=== PATIENT | male | born 1975 | race Caucasian/White ===

== ENCOUNTER 2016-12-24 15:42 | Observation (INO) | payer OTHER ==
[~2016-12-24] VITALS: Ht 180.3 cm; Wt 102.1 kg
[2016-12-24] MEDS ORDERED: CLONAZEPAM1 M2 PO ×2 (16:53)
[2016-12-24] MEDS ORDERED: CLONIDINE HCL0.1 MG PO ×2 (16:54)
[2016-12-24] MEDS ORDERED: SERTRALINE HCL100 MG PO (16:55)
[2016-12-24] MEDS ORDERED: GABAPENTIN300 M2 PO (16:55)
[2016-12-24] MEDS ORDERED: ADDERALL XR 1515 MG PO (16:56)
[2016-12-24] MEDS ORDERED: FOLIC ACID1 M1 PO (16:56)
[2016-12-24 16:58] LABS: ABSOLUTE BASOPHIL COUNT 0 /CUMM (0.0-0.2); ABSOLUTE EOSINOPHIL COUNT 0.2 /CUMM (0.0-0.7); ABSOLUTE GRANULOCYTE CT 3.6 /CUMM (1.4-6.5); ABSOLUTE LYMPH COUNT 2.2 /CUMM (1.2-3.4); ABSOLUTE MONOCYTE COUNT 0.4 /CUMM (0.10-0.60); BASOPHIL % 0.5 % (0.0-2.0); EOSINOPHIL % 3.5 % (0-5); GRANULOCYTE % 55.7 % (42.2-75.2); HEMATOCRIT 47.4 % (42-52); MEAN CORPUSCULAR HGB 29.5 PG (27.0-31.0); MEAN CORPUSCULAR HGB CONC 33.2 G/DL (33.0-37.0); PLATELET COUNT 203 /CUMM (130-400); RBC DISTRIBUTION WIDTH 16.6 % (11.5-14.5); RED BLOOD CELL CT 5.33 /CUMM (4.70-6.10); WHITE BLOOD CELL COUNT 6.5 /CUMM (4.8-10.8)
--- NOTE | 2016-12-24 17:00 | ED PSYCHIATRIC COMPLAINT ---
History of Present Illness General Chief Complaint: ETOH/Drug Related Complaint Stated Complaint: ETOH DETOX? Source: patient Exam Limitations: clinical condition Vital Signs & Intake/Output Vital Signs & Intake/Output Vital Signs Date Time Temp Pulse Resp B/P Pulse O2 O2 Flow FiO2 Ox Delivery Rate 12/25 0614 98.4 94 18 158/74 / 0613 98.4 94 18 158/74 97 Room Air 03/ 0342 98.4 109 18 164/76 / 0341 98.4 109 20 164/76 97 Room Air /08 0200 98.7 84 18 144/80 03/08 0200 98.7 94 18 144/80 98 Room Air 03/08 0041 98.9 92 18 142/78 /08 0041 98.9 92 18 142/78 97 Room Air / 2235 98.9 94 18 141/75 03/ 2206 98.9 94 18 141/75 95 Room Air / 202 98.8 101 22 156/81 100 Room Air 12/25 2019 98.8 101 22 156/81 12/24 2018 98.8 102 20 156/81 03/07 1746 98.9 116 20 154/72 03/07 1736 98.9 116 16 154/72 96 Room Air / 1552 98.4 145 22 169/94 96 Room Air ED Intake and Output 12/25 0000 12/24 1200 Intake Total 2000 Output Total 550 Balance 1450 Intake, IV 2000 Output, Urine 550 Patient 225 lb Weight Allergies Coded Allergies: No Known Allergies (12/24/16) Reconcile Medications Clonazepam 1 MG TABLET 1 TAB PO BID ANXIETY (Reported) Clonazepam 1 MG TABLET 2 TAB PO QPM ANXIETY (Reported) Clonidine HCl 0.1 MG TABLET 1 TAB PO BID ANXIETY (Reported) Clonidine HCl 0.1 MG TABLET 2 TAB PO QPM ANXIETY (Reported) Dextroamphetamine/Amphetamine (Adderall XR 15 MG Capsule) 15 MG CAP.ER.24H 1 CAP PO PRN ADD (Reported) Folic Acid 1 MG TABLET 1 TAB PO DAILY SUPPLEMENT (Reported) Gabapentin 300 MG CAPSULE 1 CAP PO 4XDAILY UNKNOWN (Reported) Sertraline HCl 100 MG TABLET 3 TAB PO QAM MENTAL HEALTH (Reported) Triage Note: TRIAGE: PT TO ER "I STARTED GETTING SCARED THAT I WOULD HAVE ANOTHER SEIZURE BECAUSE I START SEEING [facility]. I THINK THEY CALL IT [facility]". 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 HAS BEEN WITHOUT SAME X COUPLE WEEKS. STATES HAS BEEN "SUBSTITUTING" WITH ATIVAN AND ALCOHOL. LAST DOSE OF ATIVAN WAS LAST NIGHT. LAST DRINK THIS MORNING. HAS BEEN DRINKING ALMOST DAILY X COUPLE WEEKS. HR 145 AT TRIAGE. EKG ORDERED. Triage Nurses Notes Reviewed? 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 Pt endorses previous hospitalizations and detoxes but never at . He is evasive about the last date of hospitalization. It sounds like it was fairly recent as his klonopin taper ended yesterday. Last seizure was one week ago. Pt also drinks EtOH but he states that he does not drink daily. He endorses heavy "social drinking." Last drink was this AM and consisted of 2 beers and 5-6 shots of liquor. He states he turns to EtOH when his Klonopin prescription runs out and he feels uneasy from withdrawl. He does not seem to think any of his withdrawl seizures are from EtOH but solely from Klonopin but based on history it is not entirely clear if that is the case. Denies any SI/HI currently. Denies any PMH of significant condition other than orthopedic procedures. Endorses anxiety. He denies any other drugs of abuse other than Benzos, EtOH and very rare use of medical grade cannabis. Endorses previous addictions and a baseline "addictive personality." He states that he lives in the [facility]. (REUBEN HOPKINS,[facility]) Past History Travel History Traveled to [place] past 21 day No Medical History Any Pertinent Medical History? none Neurological: NONE EENT: NONE Cardiovascular: NONE Respiratory: NONE Gastrointestinal: NONE Hepatic: NONE Renal: NONE Musculoskeletal: NONE Psychiatric: NONE Endocrine: NONE Blood Disorders: NONE Cancer(s): NONE CANAL TENDER/Reproductive: NONE Surgical History Surgical History: non-contributory Psychosocial History What is your primary language Brazilian Tobacco Use: Current Daily Use Daily Tobacco Use Amount/Type: => 5 Cigarettes daily ETOH Use: heavy use Illicit Drug Use: marijuana Family History Hx Contributory? No (REUBEN HOPKINS,СВЕТЛАНА) Review of Systems Review of Systems Constitutional: Denies: malaise. EENTM: Denies: visual changes. Respiratory: Reports: no symptoms. Cardiovascular: Reports: no symptoms. GI: Reports: no symptoms. Genitourinary: Reports: no symptoms. Musculoskeletal: Reports: no symptoms. Skin: Reports: no symptoms. Neurological/Psychological: Reports: anxiety, paresthesia, tonic-clonic seizures. (REUBEN HOPKINS,СВЕТЛАНА) Physical Exam Physical Exam General Appearance: alert, awake, anxious, mild distress, intoxicated, dissheveled, poor hygiene. Head: atraumatic, normal appearance Eyes: Bilateral: normal appearance, PERRL, EOMI. Ears, Nose, Throat: normal pharynx, normal ENT inspection Neck: normal inspection, supple Respiratory: lungs clear Cardiovascular: tachycardic Gastrointestinal: soft, non-tender Extremities: normal range of motion Neurological/Psychiatric: awake, anxious, wildlife enforcement major II-XII nml as tested, depressed affect, oriented x 3 Appearance/Memory/Insight: disheveled Behavoir/Eye Contact/Speech: avoids eye contact SAD PERSONS Done? patient not suicidal (REUBEN HOPKINS,СВЕТЛАНА) Progress Differential Diagnosis: drug intoxication, drug withdrawal Plan of Care: Orders Procedure Date/time Status Regular Diet 12/25 D Active Regular Diet 12/25 B Complete Discharge Patient 12/[address] in observation 12/24 2124 Active Patient Data 12/24 2124 Active CASE MANAGEMENT CONSULT 12/24 2124 Active Code Status 12/24 2124 Active LACTIC ACID 12/24 1906 Complete Intake & Output 12/24 1748 Active CIWA 12/24 1746 Active Telemetry/Roof Truss Machine Tender 12/24 1606 Active MAGNESIUM 12/24 1606 Complete LACTIC ACID 12/24 1606 Complete ETHANOL 12/24 1606 Complete COMPREHENSIVE METABOLIC PANEL 12/24 1606 Complete CBC WITHOUT DIFFERENTIAL 12/24 1606 Complete URINE DRUG SCREEN FOR ER ONLY 12/24 1557 Complete EKG 12/24 1557 Active Laboratory Tests 12/24/16 1910: Lactic Acid 2.2 H 12/24/16 1645: Anion Gap 18 H, Estimated GFR > 60, BUN/Creatinine Ratio 15.0, Glucose 117 H, Lactic Acid 2.5 H, Calcium 9.4, Magnesium 1.9, Total Bilirubin 0.5, AST 44, ALT 40, Alkaline Phosphatase 77, Total Protein 7.2, Albumin 4.3, Globulin 2.9, Albumin/Globulin Ratio 1.5, CBC w Diff NO MAN DIFF REQ, RBC 5.33, MCV 89.0, MCH 29.5, RDW 16.6 H, MPV 7.0 L, Gran % 55.7, Lymphocytes % 33.9, Monocytes % 6.4, Eosinophils % 3.5, Basophils % 0.5, Absolute Granulocytes 3.6, Absolute Lymphocytes 2.2, Absolute Monocytes 0.4, Absolute Eosinophils 0.2, Absolute Basophils 0, PUBS MCHC 33.2, Serum Alcohol 164.0 12/24/16 1604: Urine Opiates Screen 167.00, Methadone Screen < 40, Barbiturate Screen < 60, Ur Phencyclidine Scrn > 72.00 H, Amphetamines Screen < 100, U Benzodiazepines Scrn 293 H, Urine Cocaine Screen < 50, Urine Cannabis Screen 28.40 Pt's utox is positive for etoh, benzos, PCP. His admission vitals included tachycardia nad tachypnea and he had mild lactic acidosis. At this time pt is actively detoxing. Will admisnister fluids and do repeat lactic acidosis. (REUBEN HOPKINS,СВЕТЛАНА) Initial ED EKG: normal axis, NSR Rhythm Strip: sinus tachycardia Hand-Off Endorsed To: HANNAH LUNA MD. (СВЕТЛАНА ALEXIS MD) Initial ED EKG: SINUS TACHYCARDIA Rhythm Strip: sinus tachycardia Hand-Off Endorsed To: HANNAH LUNA MD. Endorsed Time: 1900 Pending: labs (REPEAT LACTIC, REEVALUATION) (JASON APODACA MD) Hand-Off Endorsed To: LARRY MAIER MD Endorsed Time: 07 Pending: consult (CASE MANAEGMENT) Comments: Patient requesting something to help with his anxiety. An order has been placed for clonidine and Vistaril. Patient states that clonidine does not help him. Patient advised at this point we will hold off on any benzodiazepines. Patient then asked for something to "knock me out." Patient advised that the Vistaril is sedating and that will help him sleep. I was called into the room to evaluate the patient for seizure-like activity. Patient was laying on his bed and having tonic-clonic activity. Patient was responding to commands during this tonic-clonic activity and was tracking me with his eyes during this episode. There was no postictal state associated with this. Unlikely that this was a seizure. (JEREMY HOPKINS,HANNAH Boo) Departure Departure Condition: Stable Referrals: UNKNOWN (PCP/Family) Departure Forms: Customer Survey General Discharge Information (REUBEN HOPKINS,СВЕТЛАНА) Departure Clinical Impression Primary Impression: Benzodiazepine withdrawal Resident Co-Sign Statement Statement: ED Attending supervision documentation- [X] I saw and evaluated the patient. I have also reviewed all the pertinent lab results and diagnostic results. I agree with the findings and the plan of care as documented in the Resident's documentation. [X] I have reviewed the ED Record and agree with the Resident's documentation. [] Additions or exceptions (if any) to the Resident's note and plan are summarized below: [] (CONSTANZA HOPKINS,JASON) Departure Disposition: HOME OR SELF CARE Additional Instructions: Please return so we can attempt to help you detox from benzos and alcohol. (JEREMY HOPKINS,HANNAH Boo) ED Attending Observation Initial Observation Note: I have seen and personally examined PAPITO JACOBSON on 12/24/16 at 2125. I agree with the current emergency department documentation. The disposition (admission or discharge) is uncertain at this time, he needs a period of observation for the following reason(s): [PT will remain in the emergency department overnight for CIWA scoreing. Patient is requesting detox. Patient has state insurance so will require prior authorization. Currently the patient is sleeping after clonidine and Vistaril. We'll continue to monitor. If his CIWA score gets elevated he may require IV benzodiazepines.] The ED Nurse caring for this patient has been personally informed as to what the patient is being observed for. Observation Re-Evaluation: I have reevaluated PAPITO JACOBSON on 12/24/16 at 2354. The physical findings that support the continued need to observe this patient include [patient states that he still feels anxious despite the clonidine and Vistaril and he feels that he needs Ativan. Patient vital signs are stable and his CIWA score is not elevated. Patient told that he is going to continue to hold off on benzodiazepines for now. His cardiac exam is regular rate and rhythm and no murmurs auscultated. Abdomen soft and nontender nondistended. We 'll continue to follow the patient and follow serial CIWA scores. The patient is awaiting a case management consultation.]. Observation Discharge: I have reevaluated PAPITO JACOBSON on 12/25/16 at 0606. The patient is: ([X]): Stable for discharge (): To be admitted to Nursing Floor (): To be placed in Observation on Nursing Floor (): For transfer to other facility The patient was being observed for [alcohol and benzo detox] As a result of that observation, I have determined [patient wants to go home. Patient is not suicidal or homicidal. Patient along wishes to stay to talk to case management to see if the state will give approval for admission. Patient CIWA score has not clamped both 3. Patient is alert and oriented and capable of making his decision to.]. (JEREMY HOPKINS,HANNAH Boo)
[2016-12-24 17:46] VITALS: BP 154/72
[2016-12-24 20:20] VITALS: BP 156/81
[2016-12-24 22:35] VITALS: BP 141/75
[2016-12-25 00:41] VITALS: BP 142/78
[2016-12-25 02:00] VITALS: BP 144/80
[2016-12-25 03:42] VITALS: BP 164/76
[2016-12-25 06:14] VITALS: BP 158/74
== END 2016-12-25 13:56 ==
LOC: ENRESERVDT → ENRESERVTM → ERH 15:42 → ERHI 21:25 → CMPBEDREQ 12-25 13:54 → ERHI 12-25 13:56
PROVIDERS: Emergency Medicine; ADMIT Emergency Medicine
DX: F13.239 Sedative, hypnotic or anxiolytic dependence with withdrawal, unspecified (principal); E87.2 Acidosis; F41.9 Anxiety disorder, unspecified; R56.9 Unspecified convulsions; R00.0 Tachycardia, unspecified
CPT/HCPCS: 6090; 80307; 93005; 93010; 96374; G0378; G0480